=== PATIENT | male | born 1975 | race Caucasian/White ===

== ENCOUNTER → 2018-01-30 11:44 | Outpatient (CLI) | payer OTHER, SELFPAY ==
--- NOTE | 2018-01-30 11:53 | XR_ITS ---
XR hand RT min 3V HISTORY: Right hand pain following injury ITS.REASON: RT HAND PAIN,R/O BOXERS FX ORDERING PHYSICIAN: LEONOR Renee PATIENT AGE: 42 years COMPARISON: None FINDINGS: There is a mildly displaced transverse fracture involving the distal aspect of the fifth metacarpal. There is 3 mm medial and anterior displacement of the distal fracture fragment. Soft tissue swelling is present laterally. IMPRESSION: Mildly displaced boxer's fracture fifth metacarpal distally
== END ==
PROVIDERS: PCP Family Medicine; Visit Provider Physician Assistant
DX: M79.641 Pain in right hand (principal)
CPT/HCPCS: 73130